=== PATIENT | female | born 1960 | race Caucasian/White ===

== ENCOUNTER 2020-05-14 13:16 | Emergency (ER) | payer OTHER ==
[~2020-05-14 13:16] MED LIST: FLUTICASONE-SA1 EAC4 INH; PREDNISONE 20 M20 MG GT; SINGULAIR10 MG PO; VENTOLIN HFA 66.7 GM INH; XYZAL5 MG PO; ZITHROMAX250 MG PO
[2020-05-14 13:48] LABS: HEMOGLOBIN 14.5 gm/dl (12.3-15.3); RED BLOOD COUNT 4.55 M/UL (4.00-5.10)
[2020-05-14 14:12] LABS: BUN/CREATININE RATIO 12 (0-10)
[2020-05-14] MEDS ORDERED: MEDROL DOSEPAK 24 MG PO (15:48)
== END 2020-05-14 16:54 | disposition home or self-care (01) ==
LOC: ER1 13:16
PROVIDERS: Physician Assistant Medical
DX: J45.901 Unspecified asthma with (acute) exacerbation (principal); Z87.891 Personal history of nicotine dependence; Z20.822 Contact with and (suspected) exposure to COVID-19
CPT/HCPCS: 0240U; 36600; 71045; 80053; 82803; 83605; 83880; 84484; 85025; 85610; 87040; 93005; 96374; 99285; J2930

== ENCOUNTER 2020-06-23 09:58 | Emergency (ER) | payer OTHER ==
[~2020-06-23 09:58] MED LIST changes: +MEDROL DOSEPAK 24 MG PO
[2020-06-23 10:36] LABS: RED BLOOD COUNT 4.43 M/UL (4.00-5.10); WHITE BLOOD COUNT 7.4 K/UL (4.5-11.0)
[2020-06-23 11:03] LABS: BUN/CREATININE RATIO 9 (0-10)
[2020-06-23] MEDS ORDERED: PREDNISONE50 MG PO (14:51)
== END 2020-06-23 15:05 | disposition home or self-care (01) ==
LOC: ER1 09:58
PROVIDERS: Emergency Medicine
DX: J45.901 Unspecified asthma with (acute) exacerbation (principal); E87.6 Hypokalemia
CPT/HCPCS: 71045; 80053; 82550; 82553; 83874; 83880; 84484; 85025; 85379; 93005; 94664; 94760; 96374; 99285; J2930